=== PATIENT | male | born 1965 | race Caucasian/White ===

== ENCOUNTER 2022-08-10 10:11 | Day surgery (SDC) | payer OTHER ==
[~2022-08-10] VITALS: Ht 177.8 cm; Wt 95.3 kg
[2022-08-10] MEDS ORDERED: fentaNYL citrate 0.05 MG/ML VIAL ONE (11:08)
[2022-08-10] MEDS ORDERED: MIDAZOLAM 2 MG/2 ML VIAL ONE (11:08)
[2022-08-10] MEDS ORDERED: MIDAZOLAM 2 MG/2 ML VIAL IVP ONE (12:00)
== END 2022-08-10 12:20 | disposition home or self-care (01) ==
LOC: MMU 10:11 → MDS 10:11
PROVIDERS: ATTEND Internal Medicine Gastroenterology
DX: R10.13 Epigastric pain (principal); R11.0 Nausea; R14.0 Abdominal distension (gaseous); E11.9 Type 2 diabetes mellitus without complications; Z20.822 Contact with and (suspected) exposure to COVID-19
CPT/HCPCS: 43235; 87426; J2250; J3010